=== PATIENT | female | born 1990 | race Caucasian/White ===

== ENCOUNTER 2017-01-30 18:19 | Emergency (ER) | payer OTHER ==
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
[~2017-01-30 18:19] MED LIST: MEDROL DOSEPAK4 MG PO; ZYRTEC PO
== END 2017-01-30 22:48 | disposition home or self-care (01) ==
LOC: CFTX 18:19 → CED 18:19 → CFTX 19:21
DX: S92.144A Nondisplaced dome fracture of right talus, initial encounter for closed fracture (principal); S92.001A Unspecified fracture of right calcaneus, initial encounter for closed fracture; S60.221A Contusion of right hand, initial encounter; I10 Essential (primary) hypertension; F17.210 Nicotine dependence, cigarettes, uncomplicated; Z91.040 Latex allergy status; W18.30XA Fall on same level, unspecified, initial encounter
CPT/HCPCS: 29125; 29515; 73130; 73610; 73630; 73700; 99284